=== PATIENT | male | born 1995 | race African-American/Black ===

== ENCOUNTER 2021-11-21 03:12 | Emergency (ER) | payer OTHER ==
[~2021-11-21] VITALS: Ht 172.7 cm; Wt 61.0 kg
[2021-11-21] MEDS ORDERED: IOHEXOL 350 MG/ML 100 ML VIAL ONE (04:13)
[2021-11-21] MEDS ORDERED: SODIUM CHLORIDE 0.9% 100 ML ONE (04:14)
[2021-11-21] MEDS ORDERED: KETOROLAC TROMETHAMINE 30 MG/ML VIAL IVP ONE (04:30)
[2021-11-21 04:42] LABS: BASOPHILS % (AUTO) 0.5 % (0.0-2.0); EOSINOPHILS % (AUTO) 1.5 % (1.0-6.0); HEMATOCRIT 44.9 % (41-53); HEMOGLOBIN 15.5 g/dL (13.5-17.5); LYMPHOCYTES # (AUTO) 1.9 K/uL (1.0-4.8); LYMPHOCYTES % (AUTO) 27.5 % (22.0-44.0); MEAN CORPUSCULAR HEMOGLOBIN 31.8 pg (26.0-34.0); MEAN CORPUSCULAR HGB CONC 34.5 G/dL (31.0-37.0); MEAN CORPUSCULAR VOLUME 92 fL (80-100); MONOCYTES # (AUTO) 0.4 K/uL (0.1-1.0); MONOCYTES % (AUTO) 6.3 % (2.0-9.0); NEUTROPHILS # (AUTO) 4.4 K/uL (1.8-7.7); NEUTROPHILS % (AUTO) 64.2 % (40.0-70.0); PLATELET COUNT (AUTO) 183 K/uL (150-450); RED BLOOD CELL COUNT(AUTO) 4.86 MIL/uL (4.50-5.90); RED CELL DISTRIBUTION WIDTH 12.8 % (11.5-14.5)
[2021-11-21 04:43] LABS: APPEARANCE,URINE CLEAR (CLEAR); BILIRUBIN,URINE NEGATIVE (NEGATIVE); GLUCOSE, URINE (UA) NEGATIVE (NEGATIVE); KETONES,URINE NEGATIVE (NEGATIVE); LEUKOCYTE ESTERASE ,URINE NEGATIVE (NEGATIVE); NITRATE,URINE NEGATIVE (NEGATIVE); OCCULT BLOOD,URINE NEGATIVE (NEGATIVE); PROTEIN,URINE TRACE mg/dL (NEGATIVE); SPECIFIC GRAVITIY, URINE 1.033 (1.003-1.030); UROBILINOGEN,URINE <=1.0 mg/dL (<=1.0)
[2021-11-21 04:47] LABS: ANION GAP 9 mmol/L (8-16); CALCIUM, TOTAL 9.4 mg/dL (8.8-10.5); CARBON DIOXIDE 25 mmol/L (22-29); CHLORIDE 103 mmol/L (98-107); CREATININE 1.42 mg/dL (0.60-1.30); GLUCOSE,RANDOM 108 mg/dL (70-110); POTASSIUM 3.8 mmol/L (3.5-5.1); SODIUM SERUM 137 mmol/L (136-145); UREA NITROGEN, BLOOD 16 mg/dL (7-18)
[2021-11-21 04:49] LABS: GLOMERULAR FILTR. RATE CALC > 60 mL/min (>60)
[2021-11-21 04:53] LABS: ALANINE AMINOTRANSFERASE 13 U/L (12-78); ALBUMIN 4.2 g/dL (3.4-5.0); ALKALINE PHOSPHATASE 132 U/L (46-116); ASPARTATE AMINOTRANSFERASE 23 U/L (15-37); BILIRUBIN,TOTAL 0.3 mg/dL (0.1-1.0); LIPASE 76 U/L (73-393); TOTAL PROTEIN, SERUM 8.3 g/dL (6.4-8.2)
[2021-11-21 04:58] LABS: BACTERIA,URINE None Seen /HPF (None Seen); RBC,URINE 0-2 /HPF (0-2); WBC,URINE 0-2 /HPF (0-5)
[2021-11-21 05:50] VITALS: BP 112/86
[2021-11-21] MEDS ORDERED: DOCUSATE SODIUM 100 MG CAPSULE PO ONE (07:00)
== END 2021-11-21 07:35 ==
LOC: EMS 03:15
DX: K59.00 Constipation, unspecified (principal)
CPT/HCPCS: 36415; 74177; 80053; 81001; 83690; 85025; 96374; 99285; J1885; J7050; Q9967